=== PATIENT | male | born 1980 | race Caucasian/White ===

== ENCOUNTER 2025-02-16 00:48 | Day surgery (SDC) | payer BC, SELFPAY ==
[2025-02-01 10:37] VITALS: BMI 47.5
[2025-02-16 10:06] VITALS: BP 146/78; PULSE 77; RESP 18; TEMP 36.2; O2SAT 98
--- NOTE | 2025-02-16 10:08 | WPDANESEPPF ---
Anes - Initial Pre Proc Eval Procedure: Operation Date: 02/16/25 11:30 Proposed Procedures p Screening Colonoscopy - Roger Ramirez MD Date/Time: 02/16/25 10:08 Surgeon: Roger Ramirez MD Pre Op Diagnosis: positive cologuard/screening Patient Data Age: 44 Gender: M Height: 1.85 m Weight: 163.3 kg Allergies Allergy/AdvReac Type Severity Reaction Status Date / Time codeine Allergy Nausea Verified 02/16/25 10:03 polyethylene glycol 3350 Allergy angioedema Verified 02/16/25 10:03 (From Miralax) Sulfa (Sulfonamide Allergy angioedema Verified 02/16/25 10:03 Antibiotics) Home Medications ?Medication ?Instructions ?Recorded ?Confirmed ?Type allopurinol 100 mg tablet 100 mg PO DAILY 06/10/23 02/16/25 History cholecalciferol (vitamin D3) 10 10 mcg PO DAILY 06/10/23 02/16/25 History mcg (400 unit) capsule omega 6-xwl-opb-fish oil 1,000 mg 2 cap PO DAILY 06/10/23 02/16/25 History (120 mg-180 mg) capsule (Fish Oil) multivitamin 1 tablet PO DAILY 07/07/24 02/16/25 History pyridoxine (vitamin B6) 2 mg PO DAILY 07/07/24 02/16/25 History vitamin B complex 1 tablet PO DAILY 07/07/24 02/16/25 History syringe with needle, safety 1 mL #12 ea 12/28/24 02/01/25 Rx 23 gauge x 1 testosterone cypionate 200 mg/mL 150 mg (0.75 mL) IM WEEKLY #10 mL 12/28/24 02/16/25 Rx intramuscular oil olmesartan 40 mg tablet (Benicar) 40 mg PO DAILY #90 tabs 01/15/25 02/16/25 Rx sodium,potassium,mag sulfates 17.5 See Rx Instructions PO .COMPLEX 02/01/25 Rx gram-3.13 gram-1.6 gram oral soln #354 mL (Suprep Bowel Prep Kit) Patient hx anesthesia problems: none Family hx anesthesia problems: none Results Review: All pre-operative results and documents have been reviewed as part of the pre-operative evaluation. ON LICENSE OF [facility] Past Medical History Medical History Hypogonadotropic hypogonadism Diabetes KELVIN on CPAP Hypothyroidism Dyslipidemia Abnormal TSH White coat syndrome with hypertension Gout right great toe, dx by podiatry, patient reports uric acid of 3 Hypertriglyceridemia Hypogonadism in male Morbid obesity Family History Family History Mother Brain cancer Grandparent Diabetes mellitus Social History Social History Social History: 07/24/24 Patient declined SDOH Smoking status: Former smoker Tobacco type: cigarettes Alcohol intake: current Substance use: never Substance use type: does not use Lack of Transportation: No Lack of Food: Never True Current Housing: I Have Housing Concerned About Future Housing: No Difficulty Paying Gas/Electric Bills: No Difficulty Paying for Meds: No Currently Unemployed: No Education: Associate Degree Living arrangements: with family Occupation/Education: occupation Gender identity (if verbalized by the patient): Male Spiritual care concerns: No Agree to blood products: Yes Anes - Eval Final PreProcedure Day of Procedure 02/16/25 10:08 Patient weight: morbidly obese Heart: regular rate and rhythm Lungs: decreased breath sounds Airway: Mallampati scale class II Neurological: alert and oriented Last oral intake: >/= 8 hours ASA classification: III Emergent: no Anesthetic plan: proceed Anesthesia type and monitoring: general GIVS and standard monitoring Results Review: All pre-operative results and documents have been reviewed as part of the pre-operative evaluation. Informed Consent: The patient's anesthetic plan and its attendant risks and benefits were discussed with the patient/family/POA. Questions were solicited and answers provided to the satisfaction of the patient/family/POA.
[2025-02-16] MEDS: LACTATED RINGERS 1,000 ML 150 ML IV CONT (10:16)
--- NOTE | 2025-02-16 10:49 | PM.HPGS ---
History of Present Illness History of Present Illness Consent: Risks, benefits, and alternatives have been discussed and questions answered. Patient agrees to proceed with procedure. Chief complaint: positive cologuard/screening Narrative: Taqueria Baldwin is a 44 year old male here for first colonoscopy, + cologuard Review of Systems Review of Systems: All systems reviewed & are unremarkable except as noted in HPI and below PMFSH Past Medical History Medical History (Updated 02/16/25 @ 10:49 by Roger Ramirez MD) Positive colorectal cancer screening using Cologuard test Hypogonadotropic hypogonadism Diabetes KELVIN on CPAP Hypothyroidism Dyslipidemia Abnormal TSH White coat syndrome with hypertension Gout right great toe, dx by podiatry, patient reports uric acid of 3 Hypertriglyceridemia Hypogonadism in male Morbid obesity Family History Family History Mother Brain cancer Grandparent Diabetes mellitus Social History Social History Social History: 07/24/24 Patient declined SDOH Smoking status: Former smoker Tobacco type: cigarettes Alcohol intake: current Substance use: never Substance use type: does not use Lack of Transportation: No Lack of Food: Never True Current Housing: I Have Housing Concerned About Future Housing: No Difficulty Paying Gas/Electric Bills: No Difficulty Paying for Meds: No Currently Unemployed: No Education: Associate Degree Living arrangements: with family Occupation/Education: occupation Gender identity (if verbalized by the patient): Male Spiritual care concerns: No Agree to blood products: Yes Meds Home Medications and Allergies Home Medications ?Medication ?Instructions ?Recorded ?Confirmed ?Type allopurinol 100 mg tablet 100 mg PO DAILY 06/10/23 02/16/25 History cholecalciferol (vitamin D3) 10 10 mcg PO DAILY 06/10/23 02/16/25 History mcg (400 unit) capsule omega 4-czh-hct-fish oil 1,000 mg 2 cap PO DAILY 06/10/23 02/16/25 History (120 mg-180 mg) capsule (Fish Oil) multivitamin 1 tablet PO DAILY 07/07/24 02/16/25 History pyridoxine (vitamin B6) 2 mg PO DAILY 07/07/24 02/16/25 History vitamin B complex 1 tablet PO DAILY 07/07/24 02/16/25 History syringe with needle, safety 1 mL #12 ea 12/28/24 02/01/25 Rx 23 gauge x 1 testosterone cypionate 200 mg/mL 150 mg (0.75 mL) IM WEEKLY #10 mL 12/28/24 02/16/25 Rx intramuscular oil olmesartan 40 mg tablet (Benicar) 40 mg PO DAILY #90 tabs 01/15/25 02/16/25 Rx sodium,potassium,mag sulfates 17.5 See Rx Instructions PO .COMPLEX 02/01/25 Rx gram-3.13 gram-1.6 gram oral soln #354 mL (Suprep Bowel Prep Kit) Allergies Allergy/AdvReac Type Severity Reaction Status Date / Time codeine Allergy Nausea Verified 02/16/25 10:03 polyethylene glycol 3350 Allergy angioedema Verified 02/16/25 10:03 (From Miralax) Sulfa (Sulfonamide Allergy angioedema Verified 02/16/25 10:03 Antibiotics) Vital Signs Vital Signs - 24 hr 02/16/25 10:06 Temperature 97.1 F L Pulse Rate 77 Respiratory Rate 18 Blood Pressure 146/78 H Pulse Oximetry 98 Oxygen Delivery Room Air Exam Const: General: comfortable and no acute distress HENMT: Face/Nose/Sinus: Normal nares present Eyes: General: appearance normal, both eyes and all related structures Neck: Neck: no JVD Resp: Auscultation: clear to auscultation bilaterally Cardio: Rate: regular rate Rhythm: regular rhythm GI: Inspection: non-distended GI Palp: Yes Soft to palpation Skin: General skin exam: normal color Neuro: Speech: normal speech Extrem: General: normal to inspection Psych: Mental Status: mental status grossly normal Assessment and Plan Assessment and plan (1) Positive colorectal cancer screening using Cologuard test: Code(s): R19.5 - Other fecal abnormalities Status: Acute Assessment and Plan: colonoscopy
--- NOTE | 2025-02-16 11:20 | S_PTH ---
PATIENT: Taqueria Baldwin LOC: [facility]#:[id number] AGE/SX: 44/M ROOM: RE02/16/[address]: Roger Ramirez MD : 1980 BED: DIS: 02/16/2025 SPEC #: [id number] RECD: 02/16/25 12:59 STATUS: ARTIE REDoron #: [id number] SOPHIA: 02/16/25 11:[address]: Roger Ramirez DEPT: [facility] Surgical RECD BY: Malena Sanchez ENTERED: 02/16/25 12:59 SP TYPE: Surgical OTHR DR: Leyda Preston PA-C Tissues: A - Colon Polypectomy Procedures: Hematoxylin and Eosin Stain Gross and Microscopic Level 4
[2025-02-16 11:22] VITALS: BP 101/68; PULSE 67; RESP 19; O2SAT 93
[2025-02-16 11:32] VITALS: BP 124/70; PULSE 71; RESP 19; O2SAT 96
[2025-02-16 11:42] VITALS: BP 127/77; PULSE 65; RESP 16; O2SAT 97
== END 2025-02-16 12:00 | disposition home or self-care (01) ==
PROVIDERS: PCP Physician Assistant Medical; Referring Provider Physician Assistant Medical; Visit Provider Internal Medicine Gastroenterology
PROC: 0DJD8ZZ Inspection of Lower Intestinal Tract, Via Natural or Artificial Opening Endoscopic (ICD-10-PCS; CPT 45378; principal; 2025-02-16 11:30)
DX: D12.0 Benign neoplasm of cecum (principal); E11.9 Type 2 diabetes mellitus without complications; E03.9 Hypothyroidism, unspecified; E78.5 Hyperlipidemia, unspecified; E23.0 Hypopituitarism; G47.33 Obstructive sleep apnea (adult) (pediatric); E78.1 Pure hyperglyceridemia; E66.01 Morbid (severe) obesity due to excess calories; Z68.42 Body mass index [BMI] 45.0-49.9, adult; Z99.89 Dependence on other enabling machines and devices; Z87.891 Personal history of nicotine dependence; Z80.8 Family history of malignant neoplasm of other organs or systems
CPT/HCPCS: 45385; 88305; J2003; J2704; J7120